=== PATIENT | female | born 1965 | race Caucasian/White ===

== ENCOUNTER 2017-04-15 09:29 | Emergency (ER) | payer MEDICAID, OTHER ==
[~2017-04-15] VITALS: Ht 160 cm; Wt 54.4 kg
[~2017-04-15 09:29] MED LIST: NOR10T; TRAZEDONE; baclofen
[2017-04-15 10:26] VITALS: BP 122/78
[2017-04-15] MEDS ORDERED: KETOROLAC TROMETH 60MG/2ML VIAL IM ONE (11:00)
[2017-04-15] MEDS ORDERED: cefTRIAXone SOD 1,000 MG VL IM ONE (11:00)
== END 2017-04-15 11:36 | disposition home or self-care (01) ==
LOC: ER 09:29
DX: J02.9 Acute pharyngitis, unspecified (principal); H66.91 Otitis media, unspecified, right ear; F17.210 Nicotine dependence, cigarettes, uncomplicated; Z90.710 Acquired absence of both cervix and uterus
CPT/HCPCS: 96372; 99284; J0696; J1885